=== PATIENT | male | born 1985 | race Caucasian/White ===

== ENCOUNTER 2018-04-18 03:48 | Emergency (ER) | payer OTHER, SELFPAY ==
[2018-04-18] MEDS ORDERED: Ketorolac Tromethamine 60 MG/2 ML VIAL ONE (04:11)
== END 2018-04-18 04:36 | disposition home or self-care (01) ==
LOC: ERS 03:48
DX: S56.911A Strain of unspecified muscles, fascia and tendons at forearm level, right arm, initial encounter (principal); X58.XXXA Exposure to other specified factors, initial encounter
CPT/HCPCS: 96372; J1885